=== PATIENT | female | born 1960 | race Hispanic/Latino ===

== ENCOUNTER 2019-09-26 13:08 | Outpatient (CLI) | payer OTHER ==
--- NOTE | 2019-09-26 15:09 | BD ---
BONE DENSITOMETRY USING DEXA: HISTORY: Post menopausal screening for osteoporosis. Encounter for screening for osteoporosis. FINDINGS LUMBAR SPINE BMD (g/cm2) T-SCORE Z-SCORE L1 0.839 -1.4 -0.1 L2 0.832 -1.8 -0.3 L3 0.831 -2.3 -0.8 L4 0.764 -2.7 -1.7 TOTAL 0.815 -2.1 -0.6 BMD (g/cm2) T-SCORE Z-SCORE NECK 0.747 -0.9 0.2 TOTAL 1.027 0.7 1.4 There has been an interval reduction of 6.6% in the BMD of the lumbar spine and an improvement of 4.8 % in the BMD of the proximal femur since 07/13/2017. The ten year fracture risk for a major osteoporotic fracture is 3.8% and for a hip fracture is 0.2%. IMPRESSION: Osteopenia. POS: [facility]
== END 2019-09-26 13:09 | disposition home or self-care (01) ==
LOC: BICMAMMO 13:08
PROVIDERS: ATTEND Obstetrics & Gynecology
DX: Z13.820 Encounter for screening for osteoporosis (principal); M85.88 Other specified disorders of bone density and structure, other site
CPT/HCPCS: 77080